=== PATIENT | male | born 1990 | race Caucasian/White ===

== ENCOUNTER 2018-10-02 21:02 | Emergency (ER) | payer MEDICAID, OTHER ==
[2018-10-02] MEDS ORDERED: Fluconazole 150 MG Tab PO ONE (22:19)
[2018-10-02] MEDS ORDERED: Miconazole 2% Crm 30 GM Tube TOP STA (22:25)
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
== END 2018-10-02 22:54 | disposition other institution (70) ==
LOC: JP.ED 21:02
DX: B35.6 Tinea cruris (principal); B37.9 Candidiasis, unspecified; I10 Essential (primary) hypertension; Z48.01 Encounter for change or removal of surgical wound dressing
CPT/HCPCS: 99282; A9270